=== PATIENT | male | born 1970 | race Two or more races ===

== ENCOUNTER → 2025-02-17 | Day surgery (SDC) | payer OTHER ==
[~2025-02-17] VITALS: Ht 182.9 cm; Wt 106.1 kg
[~2025-02-17] MED LIST: BUPIVACAINE HCL/MPF 0.5% 30ML VIAL ONE; CEFTRIAXONE SODIUM 2,000 MG in 0.9 % SODIUM CHLORIDE 50 ML IV ONE; CHILDREN'S ASPI81 MG PO; DIBUCAINE 30 GM TUBE ONE; HEMOSTATIC MATRIX 1 KIT KIT TOP ONE; LIDOCAINE HCL 1%/EPINEPHRINE 20ML VIAL IJ ONE; METRONIDAZOLE/SODIUM CHLORIDE 200 ML IV ONE; POVIDONE-IODINE 118 ML BOTT TOP ONE; RINGERS SOLUTION,LACTATED 1,000 ML IV SCH; ROSUVASTATIN CAL5 MG PO; ZEPBOUND12.5 MG/0. SQ
[2025-02-17 09:04] LABS: HEMATOCRIT 40.6 % (39.0-48.0); HEMOGLOBIN 13.6 g/dL (13-16.00); MEAN CELL VOLUME 87.9 fL (80.0-100.00); MEAN CORPUSCULAR HEMOGLOBIN 29.5 pg (27.00-32.0); MEAN CORPUSCULAR HGB CONC 33.6 g/dl (32.0-36.0); PLATELET COUNT 232 K/uL (150-450); RED BLOOD COUNT 4.62 M/uL (4.00-6.00); RED CELL DISTRIBUTION WIDTH 13.5 % (11.5-14.5)
[2025-02-17 09:24] LABS: CALCIUM 9.4 mg/dL (8.5-10.1); CREATININE SERUM 0.75 mg/dL (0.70-1.30); GFR 108.53; POTASSIUM 4.23 mEq/L (3.5-5.1)
[2025-02-17 09:29] LABS: INR 1.01; PARTIAL THROMBOPLASTIN TIME 29.6 SECONDS (22.0-34.0)
[2025-02-17 22:09] VITALS: BP 133/87; O2SAT 100
== END | disposition home or self-care (01) ==
LOC: ER 06:55 → SURG 10:04 → ER 10:04 → O/R 10:04 → CIR.AMB 10:04 → SURG 11:12 → O/R 11:12
PROVIDERS: ATTEND Surgery
DX: K64.5 Perianal venous thrombosis (principal); K64.3 Fourth degree hemorrhoids; K62.5 Hemorrhage of anus and rectum